=== PATIENT | female | born 1960 ===

== ENCOUNTER 2019-07-23 08:42 | Inpatient (IN) | payer MEDICAID ==
[2019-07-14 09:09] LABS: APPEARANCE,URINE CLEAR; BILIRUBIN, URINE NEGATIVE (NEGATIVE); COLOR,URINE PALE YELLOW; GLUCOSE, URINE (UA) NEGATIVE (NEGATIVE); KETONES,URINE NEGATIVE (NEGATIVE); LEUKOCYTE ESTERASE ,URINE 1+ (NEGATIVE); NITRITE,URINE NEGATIVE (NEGATIVE); PH,URINE 6.5 (4.5-8.0); PROTEIN,URINE NEGATIVE (NEGATIVE); UROBILINOGEN,URINE NORMAL MG/DL (0.0-1.0)
[2019-07-14 09:13] LABS: BASOPHILS % (AUTO) 1.2 % (0.0-2.0); EOSINOPHILS % (AUTO) 3.5 % (0.0-3.0); HEMATOCRIT 41.2 % (37.0-47.0); LYMPHOCYTES % (AUTO) 30.6 % (20.0-45.0); MEAN CORPUSCULAR VOLUME 92 FL (80-99); NEUTROPHILS % (AUTO) 58.8 % (45.0-75.0); PLATELET COUNT 230 K/UL (150-450); RED BLOOD COUNT 4.47 M/UL (4.20-5.40); WHITE BLOOD COUNT 7.1 K/UL (4.8-10.8)
[2019-07-14 09:51] LABS: ANION GAP 8 mmol/L (5-15); BLOOD UREA NITROGEN 20 mg/dL (7-18); CALCIUM 8.8 MG/DL (8.5-10.1); CARBON DIOXIDE 28 MMOL/L (21-32); CHLORIDE 105 MMOL/L (98-107); CREATININE 0.8 MG/DL (0.55-1.30); POTASSIUM 4.2 MMOL/L (3.5-5.1); SODIUM 141 MMOL/L (136-145)
--- NOTE | 2019-07-14 14:24 | Diagnostic Imaging Report ---
Indication: Cough Comparison: None 2 views of the chest obtained. Findings: Cardiomediastinal silhouette and pulmonary vascularity are within normal limits for age. There is a left chest port present. The tip projects over the right atrial/SVC junction. The diaphragmatic contour is smooth and costophrenic angles are sharp. No pleural effusions are identified. The bones are unremarkable. Impression: No acute disease
--- NOTE | 2019-07-17 15:53 | Cardiology Report ---
APPROVED REPORT EKG Measurement Heart [id number] Sinus rhythm with occasional premature ventricular complexes Otherwise normal ECG
--- NOTE | 2019-07-22 16:45 | Pre-op HX & Phy Repo 2 SIG ---
DATE OF ADMISSION: 07/23/2019 SCHEDULED FOR SURGERY: 07/23/2019 HISTORY OF PRESENT ILLNESS: The patient is a 58-year-old female in overall good health, who presented in December of 2018 with a right breast mass. She had a palpable 3 cm mass in the periphery at 12 o'clock in the upper right breast. Mammogram revealed an area of 8 cm of calcifications associated with the mass and ultrasound revealed a lesion at 12 o'clock 6 cm from the nipple, 2.4 x 1 x 0.9 cm. 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 The patient has a positive family history of breast cancer and she underwent genetic testing, which was negative. The cancer is estrogen receptor positive, progesterone receptor negative, HER2 positive. She underwent neoadjuvant chemotherapy, which ended on 06/10/2019 and is now scheduled for breast conservation surgery. PAST MEDICAL HISTORY: None. MEDICATIONS: None. OPERATIONS: Tubal ligation. REVIEW OF SYSTEMS: 2, para 2. Last menstrual period at age 50. PHYSICAL EXAMINATION: VITAL SIGNS: The patient is 5 feet 1 inches, 133 pounds. Vital signs within normal limits. HEENT: Within normal limits. LUNGS: Clear. HEART: Regular rhythm. BREASTS: Large and ptotic. There is no palpable mass in either breast. No palpable axillary, supraclavicular lymphadenopathy. ABDOMEN: Soft. PELVIC: Per primary care. RECTAL: Per primary care. EXTREMITIES: Without edema. NEUROLOGIC: Physiologic. IMPRESSION: Invasive ductal carcinoma and ductal carcinoma in situ, right upper central breast with 8 cm span of ductal carcinoma in situ, status post neoadjuvant chemotherapy. PLAN: Right breast partial mastectomy with preoperative needle localization of the calcifications and right axillary lymph node biopsy. I have had a full discussion with the patient regarding the nature of her condition, the nature of the surgery, indications, alternatives, options, and risks including bleeding, infection, need for additional surgery or treatments based on final pathology, distortion, scarring of the breast and nipple etc. All questions have been answered. She understands and agrees to proceed. Charlie Galloway M.D. DR: JAIDEN JOB#: [id number] CC:
[~2019-07-23] VITALS: Ht 154.9 cm; Wt 59.0 kg
[2019-07-23] VITALS (15 sets, daily range): BP systolic 94–126; BP diastolic 47–69
[2019-07-23] MEDS ORDERED: NKM (10:21)
[2019-07-23] MEDS ORDERED: LR 1000ml 1,000 ML IVLG SCH (10:57)
[2019-07-23] MEDS ORDERED: HYDROcodone/Acetamin 5/325 tab ORAL PRN (11:00)
[2019-07-23] MEDS ORDERED: Hydromorphone 0.5mg/0.5ml inj IVP PRN (11:00)
[2019-07-23] MEDS ORDERED: LORazepam Inj 2mg/ml 1ml IV PRN (11:00)
[2019-07-23] MEDS ORDERED: DiphenhydrAMINE 50mg/ml Inj IVP PRN (11:00)
[2019-07-23] MEDS ORDERED: Midazolam 2mg/2ml Inj IVP PRN (11:00)
[2019-07-23] MEDS ORDERED: Meperidine 50mg/ml Inj(FOR RIGORS ONLY) IVP PRN (11:00)
[2019-07-23] MEDS ORDERED: fentaNYL 100 mcg/2 mL IV PRN (11:00)
[2019-07-23] MEDS ORDERED: HYDROcodone/Acetamin 7.5/325 tab ORAL PRN (11:00)
[2019-07-23] MEDS ORDERED: Metoclopramide 10mg/2ml Inj IVP PRN (11:00)
[2019-07-23] MEDS ORDERED: Labetalol 5mg/ml 20ml vial IV PRN (11:00)
[2019-07-23] MEDS ORDERED: oxyCODONE HCL/Acetaminophen 5/325mg ORAL PRN (11:00)
[2019-07-23] MEDS ORDERED: Atropine Sulfate 0.4mg/ml inj IVP PRN (11:00)
[2019-07-23] MEDS ORDERED: Ketorolac 30mg Inj IV PRN ×2 (11:00)
[2019-07-23] MEDS ORDERED: Acetaminophen (Non formulary) 100 ML IV ONE (11:00)
--- NOTE | 2019-07-23 11:06 | Anethesia Preoperative Eval ---
Anesthesia Pre-op PMH/ROS General Date of Evaluation: Jul 23, 2019 Time of Evaluation: 12:27 Anesthesiologist: Vania ASA Score: ASA 3 Mallampati Score Class I : Soft palate, uvula, fauces, pillars visible Class II: Soft palate, uvula, fauces visible Class III: Soft palate, base of uvula visible Class IV: Only hard plate visible Mallampati Classification: Class II Surgeon: Laverne Diagnosis: R Breast Invasive Ductal Carcinoma Surgical Procedure: R Partial Mastectomy, Axillary Node Dissection Anesthesia History: none Family History: no anesthesia problems Allergies: Coded Allergies: No Known Allergies (Unverified , 07/23/19) Medications: see eMAR Patient NPO?: Yes NPO Date: Jul 22, 2019 NPO Time: 1999 Past Medical History Cardiovascular: Reports: HTN Neurologic/Psychiatric: Reports: depression/anxiety Hematology/Immune: Reports: other - R Breast CA PSxH Narrative: TL Anesthesia Pre-op Phys. Exam Physician Exam Last Vital Signs Date Time Temp Pulse Resp B/P (MAP) Pulse Ox O2 Delivery O2 Flow Rate FiO2 07/23/19 10:23 Room Air 07/23/19 10:12 97.1 65 18 122/62 (82) 98 Constitutional: NAD Neurologic: CN 2-12 intact Cardiovascular: RRR Respiratory: CTA Gastrointestinal: S/NT/ND Airway Exam Mallampati Score: Class II MO: full ROM: full Teeth: missing, intact Anesthesia Pre-op A/P Risk Assessment & Plan Assessment: ASA 3 Plan: GA, SED Status Change Before Surgery: No Pre-Antibiotics Dru Gram Ancef IV Given Within 1 Hr of Incision: Yes Time Given: 12:46 Saul Caro MD Jul 23, 2019 11:06
--- NOTE | 2019-07-23 11:07 | Immediate Post-Op Evaluation ---
Immediate Post-Op Evalulation Immediate Post-Op Evalulation Procedure: R Partial Mastectomy, Axillary Node Dissection Date of Evaluation: Jul 23, 2019 Time of Evaluation: 14:35 IV Fluids: 1000 LR Blood Products: 0 Estimated Blood Loss: 20 Urinary Output: 0 Blood Pressure Systolic: 97 Blood Pressure Diastolic: 49 Pulse Rate: 56 Respiratory Rate: 16 O2 Sat by Pulse Oximetry: 100 Temperature (Fahrenheit): 97.8 Pain Score (1-10): 2 Nausea: No Vomiting: No Complications 0 Patient Status: awake, reacts, patent, extubated, none Hydration Status: adequate Dru Gram Ancef IV Given Within 1 Hr of Incision: Yes Time Given: 12:46 Saul Caro MD Jul 23, 2019 11:07
--- NOTE | 2019-07-23 11:08 | 48 Hour Post Anesthesia Eval ---
Post Anesthesia Evaluation Procedure: R Partial Mastectomy, Axillary Node Dissection Date of Evaluation: Jul 23, 2019 Airway: patent Nausea: No Vomiting: No Pain Intensity: 2 Hydration Status: adequate Cardiopulmonary Status: Stable Mental Status/LOC: patient returned to baseline Follow-up Care/Observations: 0 Post-Anesthesia Complications: 0 Follow-up care needed: ready to discharge Saul Caro MD Jul 23, 2019 11:08
[2019-07-23] MEDS ORDERED: Dexamethasone 4mg/ml vial ONE (11:10)
[2019-07-23] MEDS ORDERED: fentaNYL 100 mcg/2 mL IV ONE (11:10)
[2019-07-23] MEDS ORDERED: Lidocaine 1% MPF 10mg/ml 5ml ONE ×2 (11:10→13:20)
[2019-07-23] MEDS ORDERED: Sodium Chloride 10ml vial INJ ONE (11:21)
--- NOTE | 2019-07-23 12:03 | Pre-Procedure Note/Attestation ---
Pre-Procedure Note/Attestation Complete Prior to Procedure Planned Procedure: right Procedure Narrative: right breast partial mastectomy with pre-operative needle localization and right axillary lymph node biopsy Indications for Procedure Pre-Operative Diagnosis: invasive ductal carcinoma and ductal carcinoma in situ right breast Attestation I attest that I discussed the nature of the procedure; its benefits; risks and complications; and alternatives (and the risks and benefits of such alternatives ), prior to the procedure, with the patient (or the patient's legal healthcare representative). I attest that, if there was a reasonable possibility of needing a blood transfusion, the patient (or the patient's legal healthcare representative) was given the [facility] standardized written summary, pursuant to the Carlos Alberto Foley Blood Safety Act ([place] Health and Safety Code # 1645, as amended). I attest that I re-evaluated the patient just prior to the surgery and that there has been no change in the patient's H&P, except as documented below: none Charlie Galloway MD Jul 23, 2019 12:03
[2019-07-23] MEDS ORDERED: Lidocaine 1% 10mg/ml/Epi 0.005mg/ml 30ml vial INJ ONE (12:13)
[2019-07-23] MEDS ORDERED: Bupivacaine 0.25% Inj 30ml INJ ONE (12:13)
[2019-07-23] MEDS ORDERED: Lidocaine 1% Plain 30 ml INJ ONE (12:14)
[2019-07-23] MEDS ORDERED: Bupivacaine 0.5% Inj 30 ml vial INJ ONE (12:14)
[2019-07-23] MEDS ORDERED: NeoSporin Gu Irrig 1ml Amp IRRIG ONE (12:14)
[2019-07-23] MEDS ORDERED: Bacitracin 50000 Units Vial ONE (12:14)
[2019-07-23] MEDS ORDERED: Propofol 200mg/20ml IV ONE (13:20)
--- NOTE | 2019-07-23 14:25 | Brief Operative Note ---
Immediate Post Operative Note Operative Note Pre-op Diagnosis: invasive ductal carcinoma and ductal carcinoma in situ right breast Procedure: right breast partial mastectomy with pre-op needle localization and right axillary lymph node biopsy Post-op Diagnosis: same Post-op Diagnosis: same as pre-op Findings: consistent w/pre-op dx studies Surgeon: gagan Anesthesiologist: eliezer Anesthesia: general Specimen: yes - right breast tissue, right axillary lymph nodes Complications: none Condition: stable Fluids: see anesthesia record Estimated Blood Loss: minimal Drains: ANABEL Implant(s) used?: No Charlie Galloway MD Jul 23, 2019 14:25
[2019-07-23] MEDS ORDERED: HYDROmorphone 1mg/ml Carpuject SUBQ PRN (14:30)
--- NOTE | 2019-07-23 15:45 | NUR ---
NURSE NOTES: Patient arrived to unit at 1540 via bed, accompanied by RN. Received report from Emi ATKINS. Patient is drowsy but arousable to voice, on 2L NC. Right axillary/breast dressing clean, dry, intact. ANABEL compressed. Left hand IV intact, patent. SCD's in place. Patient reporting no pain at this time. VS assessed and stable. Limb alert sign placed above bed. Patient updated on plan of care, safety measures in place. Side rails upx3, bed low and locked, call light within reach.
[2019-07-23] MEDS: D5 1/2NS w/KCl 20mEq 1,000 ML IV SCH (17:12)
--- NOTE | 2019-07-23 17:30 | Operative Note - Dictated ---
DATE OF OPERATION: 07/23/2019 SURGEON: Charlie Galloway M.D. PR MANAGER: None. ANESTHESIOLOGIST: Saul Caro M.D. TYPE OF ANESTHESIA: General. PREOPERATIVE DIAGNOSIS: Right breast invasive ductal carcinoma and ductal carcinoma in situ. POSTOPERATIVE DIAGNOSIS: Right breast invasive ductal carcinoma and ductal carcinoma in situ. OPERATION PERFORMED: Right breast partial mastectomy with preoperative needle localization and right axillary lymph node biopsy. DESCRIPTION OF PROCEDURE: The patient was taken to the operating room and under general anesthesia with sequential compression device stockings in place, she was prepped and draped in usual fashion. The patient had an 8 cm span of microcalcifications. She had presented with a mass in the upper right breast, which resolved with neoadjuvant chemotherapy preoperatively. She had bracketing localization with 2 wires placed. A curvilinear right upper breast incision was made midway between areola and periphery and flaps dissected circumferentially. Both wires brought into the field. Dissection started superiorly, carried down to the chest wall including pectoralis fascia and a wide resection performed encompassing both wires extending down to the retroareolar tissues. The specimen was oriented with sutures placed anterior, medial, and superior. Specimen radiography confirmed the presence of microcalcifications. Specimen was given to pathology who did find the evidence of carcinoma with clear margins. The breast incision was irrigated and hemostasis carefully achieved. The incision closed with continuous 2-0 Vicryl deep dermal subcutaneous sutures followed by skin thomas as it was a rather long incision. A right axillary incision was made achieving hemostasis with cautery and incising the clavipectoral fascia. There were several obvious lymph nodes that were resected using the Thunderbeat electrosurgical device. The field was irrigated. Hemostasis was secured. The specimen was given to pathology to confirm the presence of at least 3 lymph nodes. Through a separate stab incision inferiorly, a large flat Tremaine-Maguire was placed into the axilla and sutured to the skin with 2-0 nylon skin suture. Incision was closed in layers with closing clavipectoral fascia with 3-0 Vicryl, subcutaneous tissues with 3-0 Vicryl, and the skin with continuous 4-0 Monocryl subcuticular suture. Half-inch Steri-Strips were applied to both incisions following application of Mastisol followed by dry sterile dressing and application of a post surgical brassiere. The patient tolerated the procedure well and left the operating room in good condition. Charlie Galloway M.D. DR: TG JOB#: [id number] CC:
--- NOTE | 2019-07-23 19:59 | NUR ---
HAND-OFF: Report given to Carol ATKINS.
--- NOTE | 2019-07-23 20:46 | NUR ---
NURSE NOTES: Received report from Carol, gis technician. Patient is awake, alert and oriented. Right axillary/breast dressing clean, dry, intact. ANABEL compressed, slight serosanguineous drainage. Left hand IV intact, patent. SCD's applied bilaterally. Patient reporting no pain at this time. Side rails upx2 bed low and locked, call light within reach, pt aware to call when she needs assistance.
[2019-07-23] MEDS: ceFAZolin sod 1 GM in D5W 55 ML IV SCH (22:54)
[2019-07-23] MEDS: HYDROcodone/Acetamin 5/325 tab ORAL PRN (22:57)
[2019-07-24] VITALS: BP 104/61
--- NOTE | 2019-07-24 02:17 | NUR ---
NURSE NOTES: Pt able to tolerate 500 ml fluid within 8 hour period, converted to hep lock per MD order.
[2019-07-24 04:00] VITALS: BP 108/64
[2019-07-24] MEDS: ceFAZolin sod 1 GM in D5W 55 ML IV SCH (05:00)
[2019-07-24] MEDS: D5 1/2NS w/KCl 20mEq 1,000 ML IV SCH (06:20)
--- NOTE | 2019-07-24 07:29 | NUR ---
HAND-OFF: Report given to MILLY Porras.
[2019-07-24 08:00] VITALS: BP 102/56
--- NOTE | 2019-07-24 08:00 | NUR ---
NURSE NOTES: Received report from Shi ATKINS. Patient is awake and oriented, reporting no pain at this time. Surgical site dressing clean and dry, ANABEL compressed. IV intact, patent. SCD's on. Patient updated on plan of care for the day. Side rails upx2, bed low and locked, call light within reach.
--- NOTE | 2019-07-24 09:45 | General Progress Note ---
Progress Note Progress Note AVSS Moderate pain relieved with [place]. Able to tolerate po intake now Right breast and axilla incisions clean with intact steristrips ANABEL 18cc serosang Imp. Stable Plan: Maintain in-patient status for drain teaching, supervised ambulation Charlie Galloway MD Jul 24, 2019 09:45
[2019-07-24] MEDS ORDERED: Sterile Water Irrig 1000ml IRRIG ONE (11:09)
[2019-07-24 12:00] VITALS: BP 114/80
--- NOTE | 2019-07-24 15:28 | NUR ---
CASE MANAGEMENT: INITIAL REVIEW 59 YR OLD FEMALE HERE FOR ELECTIVE SURGERY SI: RIGHT BREAST MASS CARCINOMA 97.1 65 18 122/62 98% ON RA IS: RIGHT BREAST PARTIAL MASTECTOMY WITH RIGHT AXILIARY BIOPSY : IN SURGERY NOW CASE MANAGEMENT: REVIEW 07/24/19 SI: POD#1 RIGHT BREAST PARTIAL MASTECTOMY WITH RIGHT AXILIARY BIOPSY 97.4 76 18 102/56 95% ON RA IS: IV CEFAZOLIN NORCO PO Q4/PRN 3E MED SURG DCP: HOME WHEN MEDICALLY STABLE
--- NOTE | 2019-07-24 15:29 | 48 Hour Post Anesthesia Eval ---
Post Anesthesia Evaluation Procedure: R Partial Mastectomy, Axillary Node Dissection Date of Evaluation: Jul 24, 2019 Airway: patent Nausea: No Vomiting: No Pain Intensity: 0 Hydration Status: adequate Cardiopulmonary Status: at baseline Mental Status/LOC: patient returned to baseline Post-Anesthesia Complications: 0 Follow-up care needed: ready to discharge Angela Mejía MD Jul 24, 2019 15:29
[2019-07-24 16:00] VITALS: BP 109/57
--- NOTE | 2019-07-24 18:36 | NUR ---
NURSE NOTES: Total ANABEL output for shift: 37mL of serous output
--- NOTE | 2019-07-24 19:20 | NUR ---
HAND-OFF: Report given to Diana ATKINS.
[2019-07-24] MEDS: HYDROcodone/Acetamin 5/325 tab ORAL PRN (19:52)
[2019-07-24 20:00] VITALS: BP 132/68
--- NOTE | 2019-07-24 20:00 | NUR ---
NURSE NOTES: received pt in bed. AAO X4 room air. On right breast surgical site dressing present, intact and dry. ANABEL drainage on right breast present. pt on SCD. no acute distress noted this time. call light within reach. bed is the lowest position. will continue to provide plan of care.
--- NOTE | 2019-07-24 22:39 | NUR ---
HAND-OFF: Report given to Lyndsey ATKINS.
--- NOTE | 2019-07-24 22:41 | NUR ---
NURSE NOTE: Care resumed from Diana at 2230. Pt is A/Ox4 with stable VS. Dressing and bra are clean, dry, and intact. ANABEL drain is intact. Pt expressed that she needs a size 3 bra, will order when central supply reopens in the AM.
[2019-07-25 00:08] VITALS: BP 103/63
[2019-07-25 04:28] VITALS: BP 125/96
--- NOTE | 2019-07-25 07:18 | NUR ---
NURSE NOTE: HAND-OFF: Report given to Mariah NAVARRETE
--- NOTE | 2019-07-25 07:20 | NUR ---
NURSE NOTES: Received patient in bed, alert and oriented x4. Patient is ambulatory. Denies any pain or discomfort. Dressing on right chest C/D/I. No bleeding. ANABEL drain is intact, patient knows how to drain and record the output and RN re-educated. IV intact, no s/s of infiltration. Call light and personnel items within reach. Ramez continue plan of care.
[2019-07-25 08:00] VITALS: BP 120/55
--- NOTE | 2019-07-25 09:32 | General Progress Note ---
Progress Note Progress Note Doing well. Has learned to take care of ANABEL drain. right breast and axilla healing nicely ANABEL 23cc Imp. Improved Plan: discharge with instructions/limitations discussed f/u office 07/29 To take tylenol + ibuprofen prn pain Charlie Galloway MD Jul 25, 2019 09:32
[2019-07-25] MEDS: HYDROcodone/Acetamin 5/325 tab ORAL PRN (10:21)
--- NOTE | 2019-07-25 10:45 | NUR ---
NURSE NOTES: Patient was discharged to home accompanied by her friend via private car. Prior to discharge, patient was seen by Dr. Galloway, per Dr. galloway,patient can take OTC pain medication, tylenol, or ibuprofen. Discharge instruction given to the patient about ANABEL drain, surgical site monitoring and when to get medical attention. Patient will see Dr. Galloway on 07/29/@10:00am. Patient knows how to drain ANABEL and demonstrated. RN instructed to record output and show it to doctor when she sees doctor. Patient wanted to take norco prior to discharge and pain reassessment done. Patient denied pain when leaving the unit. IV was removed, no s/s of infection on IV removal site. All belongings are accounted for. No missing items. Skin intact, dressing change done by Dr. Galloway prior to discharge. No bleeding or s/s of infection. Staff escorted patient to her car.
--- NOTE | 2019-07-26 20:23 | Discharge Summary ---
Discharge Summary Hospital Course Date of Admission Jul 23, 2019 at 16:02 Date of Discharge Jul 25, 2019 at 10:40 Admitting Diagnosis Right breast invasive ductal carcinoma Reason for Hospitalization: elective surgery VENECIA Guajardo is a 59 year old female who was admitted on Jul 23, 2019 at 16: 02 for Right breast invasive ductal carcinoma . Patient was admitted for elective surgery. Procedures s/p 07/23/[address] Galloway Right breast partial mastectomy with preoperative needle localization and right axillary lymph node biopsy. Hospital Course status post surgery course of recovery uneventful initially IV fluids s/p perioperative antibiotics neurovascular status closely monitored, remained stable right breast and axilla incisions clean with intact steri-strips ANABEL output was closely monitored pain management addressed ; pain controlled patient remained hemodynamically stable use of incentive spirometry was encouraged while in the bed tolerated diet , IV fluids discontinued antiemetics were on board as needed patient was taught ANABEL care ambulated without difficulties voided freely bowel regimen instituted patient was stable for discharge discharge instructions/limitations discussed patient to follow up on the office with surgeon 07/29 Tylenol + ibuprofen as needed for pain FINAL DIAGNOSES Right breast invasive ductal carcinoma and ductal carcinoma in situ s/p Right breast partial mastectomy with preoperative needle localization and right axillary lymph node biopsy Discharge Condition Upon Discharge: stable Discharge Disposition Patient was discharged home Discharge Instructions Discharge Instructions Special Instructions I have been assigned to complete a D/C Summary on this account. I was not involved in the patient management Lara Perez NP Jul 26, 2019 20:23
== END 2019-07-25 10:40 | disposition home or self-care (01) | DRG 363 ==
LOC: SUR 08:42 → 3E 16:02
PROC: 07B50ZX Excision of Right Axillary Lymphatic, Open Approach, Diagnostic (ICD-10-PCS; 2019-07-23)
PROC: 0HBT0ZZ Excision of Right Breast, Open Approach (ICD-10-PCS; principal; 2019-07-23 12:00)
DX: C50.811 Malignant neoplasm of overlapping sites of right female breast (principal); Z17.0 Estrogen receptor positive status [ER+]
CPT/HCPCS: 36415; 71046; 80048; 81001; 85025; 85610; 85730; 93005; 94003; 94150; J2405; J7030